=== PATIENT | female | born 1970 | race Caucasian/White ===

== ENCOUNTER → 2016-04-30 | Outpatient (CLI) | payer BC ==
[~2016-04-30] MED LIST: ASPI81TA85; D 50CAP PO; OMEP40CA2 PO; ZONI100C2 PO
--- NOTE | 2016-04-30 11:33 | REP ---
Hepatobiliary scan and gallbladder ejection fraction: History: Right upper quadrant pain. Comparison hepatobiliary scan gallbladder ejection fraction is from July 15, 2015. Technique: 6.1 mCi of technetium-99m mebrofenin was injected and sequential anterior images are acquired. 65 minutes after the mebrofenin injection, the patient consumed 8 ounces Ensure and an additional 60 minutes of imaging was acquired. Regions of interest are plotted around the gallbladder. Findings: The initial hepatocellular parenchymal uptake phase is normal and homogeneous. Intra- and extra-hepatic bile ducts and duodenum are labeled by the 10 -minute image. The gallbladder is first labeled on the 15 -minute image. There is normal washout from the liver parenchyma into the gallbladder and small intestine on subsequent images. The gallbladder ejection fraction is normal at 64 %. Values greater than 35 % are considered normal with this technique. Impression: Normal hepatobiliary scan and gallbladder ejection fraction. Signed by Tru Ledesma MD 04/30/2016 10:32 A
== END ==
LOC: M RAD 07:45
PROVIDERS: ATTEND Surgery
DX: R10.11 Right upper quadrant pain (principal)

== ENCOUNTER 2016-05-20 15:51 | Emergency (ER) | payer BC ==
[2016-05-20] MEDS ORDERED: GASTROGRAFIN SOLUTION 30ML (Q9963) As Ordered ONE (16:53)
[2016-05-20] MEDS ORDERED: MORPHINE 4 MG/ML 1ML SYRINGE As Ordered ONE (16:53)
[2016-05-20 17:41] LABS: BASO % 0.3 % (0.0-1.0); EOS # 0.1 K/mm3 (0.0-0.50); EOS % 1.3 % (0.0-3.0); LARGE UNSTAINED CELL # 0.2 K/mm3 (0.0-0.4); LARGE UNSTAINED CELL % 2.1 % (0.0-4.0); LYMPH # 2.7 K/mm3 (1.5-4.5); LYMPH % 34.3 % (24.0-44.0); MEAN CORPUSCULAR HEMOGLOBIN 30.5 pg (27.0-33.0); MEAN CORPUSCULAR HGB CONC 33.9 g/dl (32.0-36.5); MONO # 0.4 K/mm3 (0.0-0.8); MONO % 5.3 % (0.0-5.0); NEUTROPHILS # 4.2 K/mm3 (1.8-7.7); NEUTROPHILS % 56.7 % (36.0-66.0); PLATELET COUNT, AUTOMATED 205 k/mm3 (150-450); RED CELL DISTRIBUTION WIDTH 12.7 % (11.5-14.5); WHITE BLOOD COUNT 7.4 K/mm3 (4.0-10.0)
[2016-05-20 17:51] LABS: ALBUMIN 3.9 GM/DL (3.2-5.2); ALBUMIN/GLOBULIN RATIO 1.03 (1.00-1.93); ALKALINE PHOSPHATASE 78 U/L (45-117); ALT/SGPT 57 U/L (12-78); AMYLASE 64 U/L (25-115); ANION GAP 7 MEQ/L (8-16); AST/SGOT 23 U/L (15-37); BILIRUBIN,DIRECT 0.1 MG/DL (0.0-0.2); BILIRUBIN,TOTAL 0.6 MG/DL (0.2-1.0); BLOOD UREA NITROGEN 17 MG/DL (7-18); CALCIUM LEVEL 8.5 MG/DL (8.5-10.1); CARBON DIOXIDE LEVEL 25 MEQ/L (21-32); CHLORIDE LEVEL 106 MEQ/L (98-107); CREATININE FOR GFR 0.85 MG/DL (0.55-1.02); GLOMERULAR FILTRATION RATE > 60.0 (>58); GLUCOSE, FASTING 77 MG/DL (70-105); POTASSIUM SERUM 3.8 MEQ/L (3.5-5.1); SODIUM LEVEL 138 MEQ/L (136-145); TOTAL PROTEIN 7.7 GM/DL (6.4-8.2)
[2016-05-20 18:14] LABS: ERYTHROCYTE SEDIMENTATION RATE 36 mm/hr (0-20)
[2016-05-20] MEDS ORDERED: ISOVUE-370 76% 100ML VIAL (Q9967) As Ordered ONE (18:14)
[2016-05-20 18:16] LABS: HCG, SERUM QUANTITATIVE < 1.0 MIU/ML
[2016-05-20] MEDS ORDERED: metroNIDAZOLE (FLAGYL) 250 MG TAB As Ordered ONE (19:10)
[2016-05-20] MEDS ORDERED: CIPROFLOXACIN 500 MG TAB As Ordered ONE (19:10)
--- NOTE | 2016-05-20 19:28 | EDDOCDS ---
Physician Documentation [facility] Name: Janie Curiel Age: 46 yrs Sex: Female : 1970 Arrival Date: 05/20/2016 Time: 15:51 Bed I3 / M3 Private MD: Kin Bailon A. Disposition: 05/20/16 19:16 Discharged to Home/Self Care. Impression: Diverticulitis of large intestine without perforation or abscess without bleeding, Lower abdominal pain, unspecified - llq. - Condition is Stable. - Discharge Instructions: Abdominal Pain, Adult, Diverticulitis. - Prescriptions for Cipro 500 mg Oral Tablet - take 1 tablet by ORAL route every 12 hours for 14 days; 28 tablet. Flagyl 500 mg Oral Tablet - take 1 tablet by ORAL route every 8 hours for 14 days; 42 tablet. [place] 5- 325 mg Oral Tablet - take 1 tablet by ORAL route every 6 hours As needed MDD: 4 tabs; 20 tablet. - Medication Reconciliation, Local Pharmacy Hours, Work Release Form - 2 day form. - Follow up: Emergency Department; When: As needed; Reason: Worsening of conditions. Follow up: Private Physician; When: at your scheduled appointments with Primary Care and the colorectal surgeon in May; Reason: Wound/Symptom Recheck, Recheck today's complaints, Continuance of care. Follow up: Diogenes De Oliveira MD; When: Call to arrange an appointment; Reason: Wound/Symptom Recheck, Recheck today's complaints, Continuance of care, To establish care. - Problem is new. - Symptoms are unchanged. Historical: - Allergies: no known allergies; - Home Meds: 1. zonisamide 100 mg oral cap 1 cap 2 times per day 2. esomeprazole magnesium 40 mg Oral cpDR 1 cap once daily 3. aspirin 81 mg Oral tab 1 tab once daily 4. docqlace 100mg daily - PMHx: Diverticulitis; Diverticulosis; GERD; SVT; lyme disease; lupus anticaog "something"; Migraine Headaches; Hiatal Hernia; - PSHx: ; - Social history: Smoking status: Patient states was never smoker of tobacco. No barriers to communication noted, The patient speaks fluent Yi, Speaks appropriately for age. - Family history: Not pertinent. - : The pt / caregiver states he / she is not on anticoagulants. Home medication list is obtained from the patient. - Exposure Risk Screening:: None identified. MOVIE EXTRA: 05/20 16:03 LMP N/A - Post-menopause srm Vital Signs: 15:53 BP 128 / 83; Pulse 73; Resp 18 S; Temp 97.0(O); Pulse Ox 98% on R/A; Weight 80.74 kg / gr2 178 lbs (R); Height 5 ft. 1 in. (154.94 cm) (R); Pain 5/10; 19:26 BP 145 / 95; Pulse 83; Resp 16; Temp 96.8(O); Pulse Ox 97% on R/A; Pain 5/10; sew 15:53 Body Mass Index 33.63 (80.74 kg, 154.94 cm) gr2 MDM: 16:33 NS 0.9% 1000 ml IV at bolus once ordered. dt4 16:33 IV Saline Lock ordered. dt4 16:33 Undress patient appropriately for examination ordered. dt4 16:34 morphine 4 mg IVP once ordered. dt4 16:34 Amylase Ordered. EDMS 16:34 Basic Metabolic Profile Ordered. EDMS 16:34 CBC with Diff Ordered. EDMS 16:34 Lipase Ordered. EDMS 16:34 Liver Profile Ordered. EDMS 16:34 Urinalysis Ordered. EDMS 16:34 Urine Culture Ordered. EDMS 16:34 CRP Ordered. EDMS 16:34 Sed Rate Ordered. EDMS 16:34 CT ABD & PELVIS: IV and Oral Contrast Ordered. EDMS 16:35 NOTHING BY MOUTH+DIET ordered. EDMS 16:36 ED course: PT STATES HER ABDOMINAL PAIN BEGAN IN SEPTEMBER 2015, WAS DIAGNOSED WITH dt4 DIVERTICULITIS AND WAS PLACED ON CIPRO AND FLAGYL. WAS ON THESE FOR 6 WEEKS WITHOUT RELIEF. SAW A GI SPECIALIST IN [place] AND HAD A COLONOSCOPY WITH BIOPSY AND WAS TREATED WITH MORE CIPRO AND FLAGYL FOR HER LLQ PAIN. REQUIRED MORE ANTIBIOTICS AFTER THIS BECAUSE A CT SCAN REVEALED AN ABSCESS SURROUNDING A DIVERTICULA IN THE LEFT ABDOMEN. STATES A SURGEON IN [place] ADVISED DRAIN INSERTION FOR THIS ABSCESS, "BUT THEY DIDN'T CALL ME BACK IN TIME SO I WENT ON MORE ANTIBIOTICS AND IT RESOLVED." STATES HER CURRENT EPISODE OF PAIN BEGAN 2 DAYS AGO BUT WORSENED LAST NIGHT. HAS ONLY HAD A SMALL AMOUNT OF WATER TODAY WITH HER PILLS, NO FOOD. STATES FOOD MAKES HER PAIN WORSE. IS SCHEDULED TO SEE A COLORECTAL SURGEON IN [place] ON 06/04/16. . 16:44 Financial registration complete. [facility] 16:53 [facility] Payment Agreement was scanned into [employer] and attached to record. [facility] 17:51 HCG, SERUM QUANTITATIVE Ordered. EDMS 19:07 Ciprofloxacin 500 mg PO once; give to pt to take home, thank you. ordered. dt4 19:07 metroNIDAZOLE 500 mg PO once; give to pt to take home, thank you. ordered. dt4 Administered Medications: 17:00 Drug: NS 0.9% 1000 ml [sodium chloride 0.9 % injection solution] Route: IV; Rate: pml bolus; Site: left antecubital; 18:15 Follow up: IV Status: Completed infusion; IV Intake: 1000ml pml 17:00 Not Given (Patient Refused): morphine 4 mg IVP once pml 19:14 Drug: Ciprofloxacin 500 mg [ciprofloxacin 500 mg tablet (1 tabs)] Route: PO; dsf 19:14 Drug: metroNIDAZOLE 500 mg [metronidazole 250 mg tablet (2 tabs)] Route: PO; dsf Signatures: Dispatcher [employer] EDMS Carlyn Dodson RN RN srm Fuller, Desiree, RN RN dsf Gloria Burch RN RN pml Tschudi, Diane, PA-C PA-C dt4 Shawanda Franklin [facility] The chart was reviewed and I authenticate all verbal orders and agree with the evaluation and treatment provided.Corrections: (The following items were deleted from the chart) 17:51 17:41 HCG, SERUM QUANTITATIVE+LAB ordered. EDMS EDMS Attachments: 16:53 [facility] Payment Agreement [facility] MTDD
--- NOTE | 2016-05-20 19:28 | EDDOCDS ---
Nurse's Notes [facility] Name: Janie Curiel Age: 46 yrs Sex: Female : 1970 Arrival Date: 05/20/2016 Time: 15:51 Bed I3 / M3 Private MD: Kin Bailon A. Diagnosis: Diverticulitis of large intestine without perforation or abscess without bleeding;Lower abdominal pain, unspecified-llq Presentation: 05/20 15:55 Presenting complaint: Patient states: hx of diverticulosis and diverticulitis. had srm diverticular abscess from September- mar. saw surgeon in apr- wants her to have part of colon removed and possibly gall bladder. last couple of days bilateral abd pain. today left side is worse than right. constipated. no n/v/d. Risk factors: the patient reports no vaginal bleeding. Adult Sepsis Screening: The patient does not have new or worsening altered mentation. Patient's respiratory rate is less than 22. Systolic blood pressure is greater than 100. Patient has a qSOFA score of 0- Negative Sepsis Screen. Suicide/Homicide risk assessment- the patient denies having any suicidal and/or homicidal ideations and does not present with any other emotional, behavioral or mental health complaints. 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 Transition of care: patient was not received from another setting of care. 15:55 Acuity: CANDIDA Level 3 srm 15:55 Method Of Arrival: Walkin/Carried/Asstd srm Triage Assessment: 16:03 General: Appears in no apparent distress, Behavior is appropriate for age, cooperative. srm Pain: Pain currently is 4 out of 10 on a pain scale. HIV screening NA for this visit Offered previously. GI: Reports lower abdominal pain. DYNAMIC BALANCER: 16:03 LMP N/A - Post-menopause srm Historical: - Allergies: no known allergies; - Home Meds: 1. zonisamide 100 mg oral cap 1 cap 2 times per day 2. esomeprazole magnesium 40 mg Oral cpDR 1 cap once daily 3. aspirin 81 mg Oral tab 1 tab once daily 4. docqlace 100mg daily - PMHx: Diverticulitis; Diverticulosis; GERD; SVT; lyme disease; lupus anticaog "something"; Migraine Headaches; Hiatal Hernia; - PSHx: ; - Social history: Smoking status: Patient states was never smoker of tobacco. No barriers to communication noted, The patient speaks fluent [place], Speaks appropriately for age. - Family history: Not pertinent. - : The pt / caregiver states he / she is not on anticoagulants. Home medication list is obtained from the patient. - Exposure Risk Screening:: None identified. Screenin:49 Screening information is obtained from the patient. Fall risk: No risks identified. pml Assistance ADL's: requires no assistance with activities of daily living. Abuse/DV Screen: The patient / caregiver reports he/she is: not in a situation that causes fear, pain or injury. Nutritional screening: No deficits noted. Advance Directives: Currently, there is no health care proxy. home support is adequate. Assessment: 16:49 General: Appears in no apparent distress, comfortable, Behavior is appropriate for age, pml cooperative. Pain: Location: left lower quadrant Pain currently is 4 out of 10 on a pain scale. Neurological: Level of Consciousness is awake, alert, Oriented to person, place, time. Cardiovascular: Capillary refill < 3 seconds. Respiratory: Airway is patent Respiratory effort is even, unlabored. GI: Abdomen is non- distended Bowel sounds present X 4 quads. Abd is soft and non tender X 4 quads. Reports cramping, nausea. Derm: Skin is pink, warm & dry. 18:00 General: Resting on stretcher, tolerating PO gastrographin without difficulty . pml 19:15 Adult Sepsis Screening: The patient does not have new or worsening altered mentation. dsf Patient's respiratory rate is less than 22. Systolic blood pressure is greater than 100. Patient has a qSOFA score of 0- Negative Sepsis Screen. General: Appears in no apparent distress, Behavior is appropriate for age, cooperative. Neurological: Level of Consciousness is awake, alert. Cardiovascular: Capillary refill < 3 seconds. Respiratory: Airway is patent Respiratory effort is even, unlabored, Respiratory pattern is regular, symmetrical. Derm: Skin is pink, warm & dry. Vital Signs: 15:53 BP 128 / 83; Pulse 73; Resp 18 S; Temp 97.0(O); Pulse Ox 98% on R/A; Weight 80.74 kg gr2 (R); Height 5 ft. 1 in. (154.94 cm) (R); Pain 5/10; 19:26 BP 145 / 95; Pulse 83; Resp 16; Temp 96.8(O); Pulse Ox 97% on R/A; Pain 5/10; sew 15:53 Body Mass Index 33.63 (80.74 kg, 154.94 cm) gr2 Vitals: 15:53 Log In Time: May 20, 2016 at 15:53. gr2 ED Course: 15:52 Patient visited by Cat Ya. gr2 15:52 Kin Bailon is Private Physician. gr2 15:52 Patient moved to Waiting gr2 15:55 Patient visited by Cat Ya. gr2 15:55 Patient moved to Pre RCE gr2 15:59 Triage Initiated srm 16:15 Patient moved to I3 / M3 [facility] 16:16 Mei Peterson [facility]-C [facility]. dt4 16:16 Selena Calloway MD is Attending Physician. dt4 16:16 Patient visited by Mei Peterson PA-C. dt4 16:49 The patient / caregiver is instructed regarding the plan of care and ED course. Patient pml has correct armband on for positive identification. Placed in gown. Bed in low position. Call light in reach. Side rails up X2. 16:49 Inserted peripheral IV: 20gauge IV in left antecubital area and blood collected. pml Patient tolerated the procedure well. 16:51 Patient visited by Gloria Burch RN. pml 16:52 Patient name changed from Janie\\S\\E\\S\\Moisés\\S\\ to Janie\\S\\Danica\\S\\Moisés. EDMS 16:53 [facility] Payment Agreement was scanned into [employer] and attached to record. slh 17:52 Patient visited by Rose Hernandez, KAT. dls 18:28 Patient visited by Gloria Burch,KAT. pml 19:14 Diogenes De Oliveira MD is Referral Physician. dt4 19:15 Discontinued lock intact, bleeding controlled, pressure dressing applied, No dsf redness/swelling at site. No procedures done that require assistance. 19:27 Patient visited by Lashonda Avila. sew Administered Medications: 17:00 Drug: NS 0.9% 1000 ml [sodium chloride 0.9 % injection solution] Route: IV; Rate: pml bolus; Site: left antecubital; 18:15 Follow up: IV Status: Completed infusion; IV Intake: 1000ml pml 17:00 Not Given (Patient Refused): morphine 4 mg IVP once pml 19:14 Drug: Ciprofloxacin 500 mg [ciprofloxacin 500 mg tablet (1 tabs)] Route: PO; dsf 19:14 Drug: metroNIDAZOLE 500 mg [metronidazole 250 mg tablet (2 tabs)] Route: PO; dsf Intake: 18:15 IV: 1000.00ml; Total: 1000.00ml. pml Order Results: Lab Order: Amylase; SPEC'M 05/20/16 17:20 Test: AMYLASE; Value: 64; Range: 25-115; Units: U/L; Status: F Lab Order: Basic Metabolic Profile; SPEC'M 05/20/16 17:20 Test: GLUCOSE, FASTING; Value: 77; Range: 70-105; Units: MG/DL; Status: F Test: BLOOD UREA NITROGEN; Value: 17; Range: 7-18; Units: MG/DL; Status: F Test: CREATININE FOR GFR; Value: 0.85; Range: 0.55-1.02; Units: MG/DL; Status: F Test: GLOMERULAR FILTRATION RATE; Value: > 60.0; Range: >58; Status: F Test: SODIUM LEVEL; Value: 138; Range: 136-145; Units: MEQ/L; Status: F Test: POTASSIUM SERUM; Value: 3.8; Range: 3.5-5.1; Units: MEQ/L; Status: F Test: CHLORIDE LEVEL; Value: 106; Range: 98-107; Units: MEQ/L; Status: F Test: CARBON DIOXIDE LEVEL; Value: 25; Range: 21-32; Units: MEQ/L; Status: F Test: ANION GAP; Value: 7; Range: 8-16; Abnormal: Below low normal; Units: MEQ/L; Status: F Test: CALCIUM LEVEL; Value: 8.5; Range: 8.5-10.1; Units: MG/DL; Status: F Test Note: ; Units are mL/min/1.73 m2 Chronic Kidney Disease Staging per NKF: Stage I & II GFR >=60 Normal to Mildly Decreased Stage III GFR 30-59 Moderately Decreased Stage IV GFR 15-29 Severely Decreased Stage V GFR <15 Very Little GFR Left ESRD GFR <15 on CLERICAL ASSISTANT Lab Order: CBC with Diff; SPEC'M 05/20/16 17:20 Test: WHITE BLOOD COUNT; Value: 7.4; Range: 4.0-10.0; Units: K/mm3; Status: F Test: RED BLOOD COUNT; Value: 4.35; Range: 4.00-5.40; Units: M/mm3; Status: F Test: HEMOGLOBIN; Value: 13.3; Range: 12.0-16.0; Units: g/dl; Status: F Test: HEMATOCRIT; Value: 39.2; Range: 36.0-47.0; Units: %; Status: F Test: MEAN CORPUSCULAR VOLUME; Value: 90.0; Range: 80.0-96.0; Units: fl; Status: F Test: MEAN CORPUSCULAR HEMOGLOBIN; Value: 30.5; Range: 27.0-33.0; Units: pg; Status: F Test: MEAN CORPUSCULAR HGB CONC; Value: 33.9; Range: 32.0-36.5; Units: g/dl; Status: F Test: RED CELL DISTRIBUTION WIDTH; Value: 12.7; Range: 11.5-14.5; Units: %; Status: F Test: PLATELET COUNT, AUTOMATED; Value: 205; Range: 150-450; Units: k/mm3; Status: F Test: NEUTROPHILS %; Value: 56.7; Range: 36.0-66.0; Units: %; Status: F Test: LYMPH %; Value: 34.3; Range: 24.0-44.0; Units: %; Status: F Test: MONO %; Value: 5.3; Range: 0.0-5.0; Abnormal: Above high normal; Units: %; Status: F Test: EOS %; Value: 1.3; Range: 0.0-3.0; Units: %; Status: F Test: BASO %; Value: 0.3; Range: 0.0-1.0; Units: %; Status: F Test: LARGE UNSTAINED CELL %; Value: 2.1; Range: 0.0-4.0; Units: %; Status: F Test: NEUTROPHILS #; Value: 4.2; Range: 1.8-7.7; Units: K/mm3; Status: F Test: LYMPH #; Value: 2.7; Range: 1.5-4.5; Units: K/mm3; Status: F Test: MONO #; Value: 0.4; Range: 0.0-0.8; Units: K/mm3; Status: F Test: EOS #; Value: 0.1; Range: 0.0-0.50; Units: K/mm3; Status: F Test: BASO #; Value: 0.0; Range: 0.0-0.2; Units: K/mm3; Status: F Test: LARGE UNSTAINED CELL #; Value: 0.2; Range: 0.0-0.4; Units: K/mm3; Status: F Lab Order: Lipase; [facility] 05/20/16 Test: LIPASE; Value: 160; Range: 73-393; Units: U/L; Status: F Lab Order: Liver Profile; [facility] 05/20/16: Test: AST/SGOT; Value: 23; Range: 15-37; Units: U/L; Status: F Test: ALT/SGPT; Value: 57; Range: 12-78; Units: U/L; Status: F Test: ALKALINE PHOSPHATASE; Value: 78; Range: 45-117; Units: U/L; Status: F Test: BILIRUBIN,TOTAL; Value: 0.6; Range: 0.2-1.0; Units: MG/DL; Status: F Test: BILIRUBIN,DIRECT; Value: 0.1; Range: 0.0-0.2; Units: MG/DL; Status: F Test: TOTAL PROTEIN; Value: 7.7; Range: 6.4-8.2; Units: GM/DL; Status: F Test: ALBUMIN; Value: 3.9; Range: 3.2-5.2; Units: GM/DL; Status: F Test: ALBUMIN/GLOBULIN RATIO; Value: 1.03; Range: 1.00-1.93; Status: F Lab Order: CRP; [facility] 05/20/16: Test: C REACTIVE PROTEIN QUANTITATIV; Value: 1.44; Range: 0.00-0.30; Abnormal: Above high normal; Units: MG/DL; Status: F Lab Order: Sed Rate; [facility] 02/19/17 17:20 Test: ERYTHROCYTE SEDIMENTATION RATE; Value: 36; Range: 0-20; Abnormal: Above high normal; Units: mm/hr; Status: F Lab Order: HCG, SERUM QUANTITATIVE; SPEC'M 05/20/16 17:20 Test: HCG, SERUM QUANTITATIVE; Value: < 1.0; Units: MIU/ML; Status: F Test Note: ; GESTATIONAL AGE APPROXIMATE HCG RANGE (MIU/ML) 0.2-1 WEEK 5-50 1-2 WEEKS 50-500 2-3 WEEKS 100-5,000 3-4 WEEKS 500-10,000 4-5 WEEKS 1,000-50,000 5-6 WEEKS 10,000-100,000 6-8 WEEKS 15,000-200,000 2-3 MONTHS 10,000-100,000 NON FEMALES LESS THAN 3.0 Patient samples may contain human heterophilic antibodies that could react with immunoassays to give falsely elevated or depressed results. This assay has been designed to minimize interference from heterophilic antibodies. Elevated hCG levels have also been associated with trophoblastic disease and nontrophoblastic neoplasms. The possibility of having these diseases should be considered before a diagnosis of is made. This test is not intended for use as a surrogate marker for aiding in the diagnosis or monitoring the treatment of cancer patients. [employer] methodology. Outcome: 19:16 Discharge ordered by Provider. dt4 19:16 CT Study completed. dsf 19:27 Discharge Assessment: Patient awake, alert and oriented x 3. No cognitive and/or dsf functional deficits noted. Patient verbalized understanding of disposition instructions. patient administered narcotics - no. The following High Risk Discharge criteria are identified: None. Discharged to home ambulatory, with family. Condition: stable. Discharge instructions given to patient, Instructed on discharge instructions, follow up and referral plans. medication usage, no driving heavy equipment, Demonstrated understanding of instructions, medications, Pt was receptive of discharge instructions/ teaching. Prescriptions given X 3, Work note provided to patient. Property sent home with patient. 19:27 Patient left the ED. dsf Signatures: Dispatcher [facility] EDAK Carlyn Dodson RN RN srm Scott, Debra, RN RN dls Fuller, Desiree, RN RN f Gloria Burch RN RN Josselyn Argueta RN RN [facility] [place], Cat Liu gr2 Mei Peterson PA-C PA-C dt4 Shawanda Franklin NASIM
--- NOTE | 2016-05-21 08:17 | REP ---
Clinical: Acute left lower quadrant pain. Technique: Axial contrast enhanced images from the lung bases to the pubic symphysis using oral and 100 ml Isovue 370 intravenous contrast material. Comparison: 01/12/2016. Findings: Mural thickening and pericolonic stranding is appreciated involving the proximal sigmoid colon with diffuse diverticulosis. Findings are most compatible with acute diverticulitis a single significantly dilated air filled inflamed diverticula is noted and small contained perforation cannot definitively be excluded (images 98 - 88). Inflammatory changes are inseparable from the left adnexa and may warrant followup to exclude secondary tubal ovarian inflammatory changes. No bowel obstruction or michael perforation. The remainder of the small large bowel is grossly unremarkable. Liver, spleen, pancreas, gallbladder, bilateral adrenal glands and kidneys are normal pelvis demonstrates normal bladder and age-appropriate uterus/adnexa no pelvic fluid or ascites. No significant adenopathy. Vasculature appears normal. Musculoskeletal structures are intact. Impression: Acute sigmoid diverticulitis as described above. Small focus of contained perforation cannot be excluded as well as secondary inflammatory changes to the left ovary. There is no associated bowel obstruction, michael perforation, or drainable collection/abscess. Signed by Doug Emmanuel MD 05/21/2016 08:08 A
--- NOTE | 2016-05-22 20:28 | EDDOCDS ---
Physician Documentation [facility] Name: Janie Curiel Age: 46 yrs Sex: Female : 1970 Arrival Date: 05/20/2016 Time: 15:51 Bed I3 / M3 Private MD: Kin Bailon A. Disposition: 05/20/16 19:16 Discharged to Home/Self Care. Impression: Diverticulitis of large intestine without perforation or abscess without bleeding, Lower abdominal pain, unspecified - llq. - Condition is Stable. - Discharge Instructions: Abdominal Pain, Adult, Diverticulitis. - Prescriptions for Cipro 500 mg Oral Tablet - take 1 tablet by ORAL route every 12 hours for 14 days; 28 tablet. Flagyl 500 mg Oral Tablet - take 1 tablet by ORAL route every 8 hours for 14 days; 42 tablet. [place] 5- 325 mg Oral Tablet - take 1 tablet by ORAL route every 6 hours As needed MDD: 4 tabs; 20 tablet. - Medication Reconciliation, Local Pharmacy Hours, Work Release Form - 2 day form. - Follow up: Emergency Department; When: As needed; Reason: Worsening of conditions. Follow up: Private Physician; When: at your scheduled appointments with Primary Care and the colorectal surgeon in May; Reason: Wound/Symptom Recheck, Recheck today's complaints, Continuance of care. Follow up: Diogenes De Oliveira MD; When: Call to arrange an appointment; Reason: Wound/Symptom Recheck, Recheck today's complaints, Continuance of care, To establish care. - Problem is new. - Symptoms are unchanged. Historical: - Allergies: no known allergies; - Home Meds: 1. zonisamide 100 mg oral cap 1 cap 2 times per day 2. esomeprazole magnesium 40 mg Oral cpDR 1 cap once daily 3. aspirin 81 mg Oral tab 1 tab once daily 4. docqlace 100mg daily - PMHx: Diverticulitis; Diverticulosis; GERD; SVT; lyme disease; lupus anticaog "something"; Migraine Headaches; Hiatal Hernia; - PSHx: ; - Social history: Smoking status: Patient states was never smoker of tobacco. No barriers to communication noted, The patient speaks fluent Kinyarwanda, Speaks appropriately for age. - Family history: Not pertinent. - : The pt / caregiver states he / she is not on anticoagulants. Home medication list is obtained from the patient. - Exposure Risk Screening:: None identified. REVIEW SCHEDULING COORDINATOR: 05/20 16:03 LMP N/A - Post-menopause srm Vital Signs: 15:53 BP 128 / 83; Pulse 73; Resp 18 S; Temp 97.0(O); Pulse Ox 98% on R/A; Weight 80.74 kg / gr2 178 lbs (R); Height 5 ft. 1 in. (154.94 cm) (R); Pain 5/10; 19:26 BP 145 / 95; Pulse 83; Resp 16; Temp 96.8(O); Pulse Ox 97% on R/A; Pain 5/10; sew 15:53 Body Mass Index 33.63 (80.74 kg, 154.94 cm) gr2 MDM: 16:33 NS 0.9% 1000 ml IV at bolus once ordered. dt4 16:33 IV Saline Lock ordered. dt4 16:33 Undress patient appropriately for examination ordered. dt4 16:34 morphine 4 mg IVP once ordered. dt4 16:34 Amylase Ordered. EDMS 16:34 Basic Metabolic Profile Ordered. EDMS 16:34 CBC with Diff Ordered. EDMS 16:34 Lipase Ordered. EDMS 16:34 Liver Profile Ordered. EDMS 16:34 Urinalysis Ordered. EDMS 16:34 Urine Culture Ordered. EDMS 16:34 CRP Ordered. EDMS 16:34 Sed Rate Ordered. EDMS 16:34 CT ABD & PELVIS: IV and Oral Contrast Ordered. EDMS 16:35 NOTHING BY MOUTH+DIET ordered. EDMS 16:36 ED course: PT STATES HER ABDOMINAL PAIN BEGAN IN SEPTEMBER 2015, WAS DIAGNOSED WITH dt4 DIVERTICULITIS AND WAS PLACED ON CIPRO AND FLAGYL. WAS ON THESE FOR 6 WEEKS WITHOUT RELIEF. SAW A GI SPECIALIST IN [place] AND HAD A COLONOSCOPY WITH BIOPSY AND WAS TREATED WITH MORE CIPRO AND FLAGYL FOR HER LLQ PAIN. REQUIRED MORE ANTIBIOTICS AFTER THIS BECAUSE A CT SCAN REVEALED AN ABSCESS SURROUNDING A DIVERTICULA IN THE LEFT ABDOMEN. STATES A SURGEON IN [place] ADVISED DRAIN INSERTION FOR THIS ABSCESS, "BUT THEY DIDN'T CALL ME BACK IN TIME SO I WENT ON MORE ANTIBIOTICS AND IT RESOLVED." STATES HER CURRENT EPISODE OF PAIN BEGAN 2 DAYS AGO BUT WORSENED LAST NIGHT. HAS ONLY HAD A SMALL AMOUNT OF WATER TODAY WITH HER PILLS, NO FOOD. STATES FOOD MAKES HER PAIN WORSE. IS SCHEDULED TO SEE A COLORECTAL SURGEON IN [place] ON 06/04/16. . 16:44 Financial registration complete. [facility] 16:53 [facility] Payment Agreement was scanned into [employer] and attached to record. [facility] 17:51 HCG, SERUM QUANTITATIVE Ordered. EDMS 19:07 Ciprofloxacin 500 mg PO once; give to pt to take home, thank you. ordered. dt4 19:07 metroNIDAZOLE 500 mg PO once; give to pt to take home, thank you. ordered. dt4 22:20 T-Sheet-- Draft Copy was scanned into [employer] and attached to record. klr Administered Medications: 17:00 Drug: NS 0.9% 1000 ml [sodium chloride 0.9 % injection solution] Route: IV; Rate: pml bolus; Site: left antecubital; 18:15 Follow up: IV Status: Completed infusion; IV Intake: 1000ml pml 17:00 Not Given (Patient Refused): morphine 4 mg IVP once pml 19:14 Drug: Ciprofloxacin 500 mg [ciprofloxacin 500 mg tablet (1 tabs)] Route: PO; dsf 19:14 Drug: metroNIDAZOLE 500 mg [metronidazole 250 mg tablet (2 tabs)] Route: PO; dsf Signatures: Dispatcher [employer] EDMS Carlyn Dodson RN RN srm Fuller, Desiree, RN RN dsf Quay, Paulina, RN RN pml Tschudi, Diane, JESIKA PAShawanda Raphael Leidy Wang The chart was reviewed and I authenticate all verbal orders and agree with the evaluation and treatment provided.Corrections: (The following items were deleted from the chart) 17:51 17:41 HCG, SERUM QUANTITATIVE+LAB ordered. EDMS EDMS Attachments: 16:53 [facility] Payment Agreement [facility] 22:20 T-Sheet-- Draft Copy klr Chart Complete MTDD
--- NOTE | 2016-05-22 20:28 | EDDOCDS ---
Physician Documentation [facility] Name: Janie Curiel Age: 46 yrs Sex: Female : 1970 Arrival Date: 05/20/2016 Time: 15:51 Bed I3 / M3 Private MD: Kin Bailon A. Disposition: 05/20/16 19:16 Discharged to Home/Self Care. Impression: Diverticulitis of large intestine without perforation or abscess without bleeding, Lower abdominal pain, unspecified - llq. - Condition is Stable. - Discharge Instructions: Abdominal Pain, Adult, Diverticulitis. - Prescriptions for Cipro 500 mg Oral Tablet - take 1 tablet by ORAL route every 12 hours for 14 days; 28 tablet. Flagyl 500 mg Oral Tablet - take 1 tablet by ORAL route every 8 hours for 14 days; 42 tablet. [place] 5- 325 mg Oral Tablet - take 1 tablet by ORAL route every 6 hours As needed MDD: 4 tabs; 20 tablet. - Medication Reconciliation, Local Pharmacy Hours, Work Release Form - 2 day form. - Follow up: Emergency Department; When: As needed; Reason: Worsening of conditions. Follow up: Private Physician; When: at your scheduled appointments with Primary Care and the colorectal surgeon in May; Reason: Wound/Symptom Recheck, Recheck today's complaints, Continuance of care. Follow up: Diogenes De Oliveira MD; When: Call to arrange an appointment; Reason: Wound/Symptom Recheck, Recheck today's complaints, Continuance of care, To establish care. - Problem is new. - Symptoms are unchanged. Historical: - Allergies: no known allergies; - Home Meds: 1. zonisamide 100 mg oral cap 1 cap 2 times per day 2. esomeprazole magnesium 40 mg Oral cpDR 1 cap once daily 3. aspirin 81 mg Oral tab 1 tab once daily 4. docqlace 100mg daily - PMHx: Diverticulitis; Diverticulosis; GERD; SVT; lyme disease; lupus anticaog "something"; Migraine Headaches; Hiatal Hernia; - PSHx: ; - Social history: Smoking status: Patient states was never smoker of tobacco. No barriers to communication noted, The patient speaks fluent Maltese, Speaks appropriately for age. - Family history: Not pertinent. - : The pt / caregiver states he / she is not on anticoagulants. Home medication list is obtained from the patient. - Exposure Risk Screening:: None identified. AUDITING MANAGER: 05/20 16:03 LMP N/A - Post-menopause srm Vital Signs: 15:53 BP 128 / 83; Pulse 73; Resp 18 S; Temp 97.0(O); Pulse Ox 98% on R/A; Weight 80.74 kg / gr2 178 lbs (R); Height 5 ft. 1 in. (154.94 cm) (R); Pain 5/10; 19:26 BP 145 / 95; Pulse 83; Resp 16; Temp 96.8(O); Pulse Ox 97% on R/A; Pain 5/10; sew 15:53 Body Mass Index 33.63 (80.74 kg, 154.94 cm) gr2 MDM: 16:33 NS 0.9% 1000 ml IV at bolus once ordered. dt4 16:33 IV Saline Lock ordered. dt4 16:33 Undress patient appropriately for examination ordered. dt4 16:34 morphine 4 mg IVP once ordered. dt4 16:34 Amylase Ordered. EDMS 16:34 Basic Metabolic Profile Ordered. EDMS 16:34 CBC with Diff Ordered. EDMS 16:34 Lipase Ordered. EDMS 16:34 Liver Profile Ordered. EDMS 16:34 Urinalysis Ordered. EDMS 16:34 Urine Culture Ordered. EDMS 16:34 CRP Ordered. EDMS 16:34 Sed Rate Ordered. EDMS 16:34 CT ABD & PELVIS: IV and Oral Contrast Ordered. EDMS 16:35 NOTHING BY MOUTH+DIET ordered. EDMS 16:36 ED course: PT STATES HER ABDOMINAL PAIN BEGAN IN SEPTEMBER 2015, WAS DIAGNOSED WITH dt4 DIVERTICULITIS AND WAS PLACED ON CIPRO AND FLAGYL. WAS ON THESE FOR 6 WEEKS WITHOUT RELIEF. SAW A GI SPECIALIST IN [place] AND HAD A COLONOSCOPY WITH BIOPSY AND WAS TREATED WITH MORE CIPRO AND FLAGYL FOR HER LLQ PAIN. REQUIRED MORE ANTIBIOTICS AFTER THIS BECAUSE A CT SCAN REVEALED AN ABSCESS SURROUNDING A DIVERTICULA IN THE LEFT ABDOMEN. STATES A SURGEON IN [place] ADVISED DRAIN INSERTION FOR THIS ABSCESS, "BUT THEY DIDN'T CALL ME BACK IN TIME SO I WENT ON MORE ANTIBIOTICS AND IT RESOLVED." STATES HER CURRENT EPISODE OF PAIN BEGAN 2 DAYS AGO BUT WORSENED LAST NIGHT. HAS ONLY HAD A SMALL AMOUNT OF WATER TODAY WITH HER PILLS, NO FOOD. STATES FOOD MAKES HER PAIN WORSE. IS SCHEDULED TO SEE A COLORECTAL SURGEON IN [place] ON 06/04/16. . 16:44 Financial registration complete. [facility] 16:53 [facility] Payment Agreement was scanned into [employer] and attached to record. [facility] 17:51 HCG, SERUM QUANTITATIVE Ordered. EDMS 19:07 Ciprofloxacin 500 mg PO once; give to pt to take home, thank you. ordered. dt4 19:07 metroNIDAZOLE 500 mg PO once; give to pt to take home, thank you. ordered. dt4 22:20 T-Sheet-- Draft Copy was scanned into [employer] and attached to record. klr Administered Medications: 17:00 Drug: NS 0.9% 1000 ml [sodium chloride 0.9 % injection solution] Route: IV; Rate: pml bolus; Site: left antecubital; 18:15 Follow up: IV Status: Completed infusion; IV Intake: 1000ml pml 17:00 Not Given (Patient Refused): morphine 4 mg IVP once pml 19:14 Drug: Ciprofloxacin 500 mg [ciprofloxacin 500 mg tablet (1 tabs)] Route: PO; dsf 19:14 Drug: metroNIDAZOLE 500 mg [metronidazole 250 mg tablet (2 tabs)] Route: PO; dsf Signatures: Dispatcher [employer] EDMS Carlyn Dodson RN RN srm Fuller, Desiree, RN RN dsf Quay, Paulina, RN RN pml Tschudi, Diane, JESIKA PAShawanda Raphael Leidy Wang The chart was reviewed and I authenticate all verbal orders and agree with the evaluation and treatment provided.Corrections: (The following items were deleted from the chart) 17:51 17:41 HCG, SERUM QUANTITATIVE+LAB ordered. EDMS EDMS Attachments: 16:53 [facility] Payment Agreement [facility] 22:20 T-Sheet-- Draft Copy klr Chart Complete MTDD
--- NOTE | 2016-05-22 20:28 | EDDOCDS ---
Nurse's Notes [facility] Name: Janie Curiel Age: 46 yrs Sex: Female : 1970 Arrival Date: 05/20/2016 Time: 15:51 Bed I3 / M3 Private MD: Kin Bailon A. Diagnosis: Diverticulitis of large intestine without perforation or abscess without bleeding;Lower abdominal pain, unspecified-llq Presentation: 05/20 15:55 Presenting complaint: Patient states: hx of diverticulosis and diverticulitis. had srm diverticular abscess from September- mar. saw surgeon in apr- wants her to have part of colon removed and possibly gall bladder. last couple of days bilateral abd pain. today left side is worse than right. constipated. no n/v/d. Risk factors: the patient reports no vaginal bleeding. Adult Sepsis Screening: The patient does not have new or worsening altered mentation. Patient's respiratory rate is less than 22. Systolic blood pressure is greater than 100. Patient has a qSOFA score of 0- Negative Sepsis Screen. Suicide/Homicide risk assessment- the patient denies having any suicidal and/or homicidal ideations and does not present with any other emotional, behavioral or mental health complaints. 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 Transition of care: patient was not received from another setting of care. 15:55 Acuity: CANDIDA Level 3 srm 15:55 Method Of Arrival: Walkin/Carried/Asstd srm Triage Assessment: 16:03 General: Appears in no apparent distress, Behavior is appropriate for age, cooperative. srm Pain: Pain currently is 4 out of 10 on a pain scale. HIV screening NA for this visit Offered previously. GI: Reports lower abdominal pain. CHECK VIEWER: 16:03 LMP N/A - Post-menopause srm Historical: - Allergies: no known allergies; - Home Meds: 1. zonisamide 100 mg oral cap 1 cap 2 times per day 2. esomeprazole magnesium 40 mg Oral cpDR 1 cap once daily 3. aspirin 81 mg Oral tab 1 tab once daily 4. docqlace 100mg daily - PMHx: Diverticulitis; Diverticulosis; GERD; SVT; lyme disease; lupus anticaog "something"; Migraine Headaches; Hiatal Hernia; - PSHx: ; - Social history: Smoking status: Patient states was never smoker of tobacco. No barriers to communication noted, The patient speaks fluent [place], Speaks appropriately for age. - Family history: Not pertinent. - : The pt / caregiver states he / she is not on anticoagulants. Home medication list is obtained from the patient. - Exposure Risk Screening:: None identified. Screenin:49 Screening information is obtained from the patient. Fall risk: No risks identified. pml Assistance ADL's: requires no assistance with activities of daily living. Abuse/DV Screen: The patient / caregiver reports he/she is: not in a situation that causes fear, pain or injury. Nutritional screening: No deficits noted. Advance Directives: Currently, there is no health care proxy. home support is adequate. Assessment: 16:49 General: Appears in no apparent distress, comfortable, Behavior is appropriate for age, pml cooperative. Pain: Location: left lower quadrant Pain currently is 4 out of 10 on a pain scale. Neurological: Level of Consciousness is awake, alert, Oriented to person, place, time. Cardiovascular: Capillary refill < 3 seconds. Respiratory: Airway is patent Respiratory effort is even, unlabored. GI: Abdomen is non- distended Bowel sounds present X 4 quads. Abd is soft and non tender X 4 quads. Reports cramping, nausea. Derm: Skin is pink, warm & dry. 18:00 General: Resting on stretcher, tolerating PO gastrographin without difficulty . pml 19:15 Adult Sepsis Screening: The patient does not have new or worsening altered mentation. dsf Patient's respiratory rate is less than 22. Systolic blood pressure is greater than 100. Patient has a qSOFA score of 0- Negative Sepsis Screen. General: Appears in no apparent distress, Behavior is appropriate for age, cooperative. Neurological: Level of Consciousness is awake, alert. Cardiovascular: Capillary refill < 3 seconds. Respiratory: Airway is patent Respiratory effort is even, unlabored, Respiratory pattern is regular, symmetrical. Derm: Skin is pink, warm & dry. Vital Signs: 15:53 BP 128 / 83; Pulse 73; Resp 18 S; Temp 97.0(O); Pulse Ox 98% on R/A; Weight 80.74 kg gr2 (R); Height 5 ft. 1 in. (154.94 cm) (R); Pain 5/10; 19:26 BP 145 / 95; Pulse 83; Resp 16; Temp 96.8(O); Pulse Ox 97% on R/A; Pain 5/10; sew 15:53 Body Mass Index 33.63 (80.74 kg, 154.94 cm) gr2 Vitals: 15:53 Log In Time: May 20, 2016 at 15:53. gr2 ED Course: 15:52 Patient visited by Cat Ya. gr2 15:52 Kin Bailon is Private Physician. gr2 15:52 Patient moved to Waiting gr2 15:55 Patient visited by Cat Ya. gr2 15:55 Patient moved to Pre RCE gr2 15:59 Triage Initiated srm 16:15 Patient moved to I3 / M3 [facility] 16:16 [facility] dt4 16:16 Selena Calloway MD is Attending Physician. dt4 16:16 Patient visited by Mei Peterson PA-C. dt4 16:49 The patient / caregiver is instructed regarding the plan of care and ED course. Patient pml has correct armband on for positive identification. Placed in gown. Bed in low position. Call light in reach. Side rails up X2. 16:49 Inserted peripheral IV: 20gauge IV in left antecubital area and blood collected. pml Patient tolerated the procedure well. 16:51 Patient visited by Gloria Burch RN. pml 16:52 Patient name changed from Janie\\S\\E\\S\\Moisés\\S\\ to Janie\\S\\Danica\\S\\Moisés. EDMS 16:53 [facility] Payment Agreement was scanned into [employer] and attached to record. slh 17:52 Patient visited by Rose Hernandez, KAT. dls 18:28 Patient visited by Gloria Burch,KAT. pml 19:14 Diogenes De Oliveira MD is Referral Physician. dt4 19:15 Discontinued lock intact, bleeding controlled, pressure dressing applied, No dsf redness/swelling at site. No procedures done that require assistance. 19:27 Patient visited by Lashonda Avila. sew 22:20 T-Sheet-- Draft Copy was scanned into [employer] and attached to record. klr 05/21 08:45 CT ABD & PELVIS: IV and Oral Contrast Returned. EDMS Administered Medications: 05/20 17:00 Drug: NS 0.9% 1000 ml [sodium chloride 0.9 % injection solution] Route: IV; Rate: pml bolus; Site: left antecubital; 18:15 Follow up: IV Status: Completed infusion; IV Intake: 1000ml pml 17:00 Not Given (Patient Refused): morphine 4 mg IVP once pml 19:14 Drug: Ciprofloxacin 500 mg [ciprofloxacin 500 mg tablet (1 tabs)] Route: PO; dsf 19:14 Drug: metroNIDAZOLE 500 mg [metronidazole 250 mg tablet (2 tabs)] Route: PO; dsf Intake: 18:15 IV: 1000.00ml; Total: 1000.00ml. pml Order Results: Lab Order: Amylase; SPEC'M 05/20/16 17:20 Test: AMYLASE; Value: 64; Range: 25-115; Units: U/L; Status: F Lab Order: Basic Metabolic Profile; SPEC'M 05/20/16 17:20 Test: GLUCOSE, FASTING; Value: 77; Range: 70-105; Units: MG/DL; Status: F Test: BLOOD UREA NITROGEN; Value: 17; Range: 7-18; Units: MG/DL; Status: F Test: CREATININE FOR GFR; Value: 0.85; Range: 0.55-1.02; Units: MG/DL; Status: F Test: GLOMERULAR FILTRATION RATE; Value: > 60.0; Range: >58; Status: F Test: SODIUM LEVEL; Value: 138; Range: 136-145; Units: MEQ/L; Status: F Test: POTASSIUM SERUM; Value: 3.8; Range: 3.5-5.1; Units: MEQ/L; Status: F Test: CHLORIDE LEVEL; Value: 106; Range: 98-107; Units: MEQ/L; Status: F Test: CARBON DIOXIDE LEVEL; Value: 25; Range: 21-32; Units: MEQ/L; Status: F Test: ANION GAP; Value: 7; Range: 8-16; Abnormal: Below low normal; Units: MEQ/L; Status: F Test: CALCIUM LEVEL; Value: 8.5; Range: 8.5-10.1; Units: MG/DL; Status: F Test Note: ; Units are mL/min/1.73 m2 Chronic Kidney Disease Staging per NKF: Stage I & II GFR >=60 Normal to Mildly Decreased Stage III GFR 30-59 Moderately Decreased Stage IV GFR 15-29 Severely Decreased Stage V GFR <15 Very Little GFR Left ESRD GFR <[address] Lab Order: CBC with Diff; PHILL'M 05/20/16 17:20 Test: WHITE BLOOD COUNT; Value: 7.4; Range: 4.0-10.0; Units: K/mm3; Status: F Test: RED BLOOD COUNT; Value: 4.35; Range: 4.00-5.40; Units: M/mm3; Status: F Test: HEMOGLOBIN; Value: 13.3; Range: 12.0-16.0; Units: g/dl; Status: F Test: HEMATOCRIT; Value: 39.2; Range: 36.0-47.0; Units: %; Status: F Test: MEAN CORPUSCULAR VOLUME; Value: 90.0; Range: 80.0-96.0; Units: fl; Status: F Test: MEAN CORPUSCULAR HEMOGLOBIN; Value: 30.5; Range: 27.0-33.0; Units: pg; Status: F Test: MEAN CORPUSCULAR HGB CONC; Value: 33.9; Range: 32.0-36.5; Units: g/dl; Status: F Test: RED CELL DISTRIBUTION WIDTH; Value: 12.7; Range: 11.5-14.5; Units: %; Status: F Test: PLATELET COUNT, AUTOMATED; Value: 205; Range: 150-450; Units: k/mm3; Status: F Test: NEUTROPHILS %; Value: 56.7; Range: 36.0-66.0; Units: %; Status: F Test: LYMPH %; Value: 34.3; Range: 24.0-44.0; Units: %; Status: F Test: MONO %; Value: 5.3; Range: 0.0-5.0; Abnormal: Above high normal; Units: %; Status: F Test: EOS %; Value: 1.3; Range: 0.0-3.0; Units: %; Status: F Test: BASO %; Value: 0.3; Range: 0.0-1.0; Units: %; Status: F Test: LARGE UNSTAINED CELL %; Value: 2.1; Range: 0.0-4.0; Units: %; Status: F Test: NEUTROPHILS #; Value: 4.2; Range: 1.8-7.7; Units: K/mm3; Status: F Test: LYMPH #; Value: 2.7; Range: 1.5-4.5; Units: K/mm3; Status: F Test: MONO #; Value: 0.4; Range: 0.0-0.8; Units: K/mm3; Status: F Test: EOS #; Value: 0.1; Range: 0.0-0.50; Units: K/mm3; Status: F Test: BASO #; Value: 0.0; Range: 0.0-0.2; Units: K/mm3; Status: F Test: LARGE UNSTAINED CELL #; Value: 0.2; Range: 0.0-0.4; Units: K/mm3; Status: F Lab Order: Lipase; [facility] 05/20/16 17:20 Test: LIPASE; Value: 160; Range: 73-393; Units: U/L; Status: F Lab Order: Liver Profile; [facility] 05/20/16 17:20 Test: AST/SGOT; Value: 23; Range: 15-37; Units: U/L; Status: F Test: ALT/SGPT; Value: 57; Range: 12-78; Units: U/L; Status: F Test: ALKALINE PHOSPHATASE; Value: 78; Range: 45-117; Units: U/L; Status: F Test: BILIRUBIN,TOTAL; Value: 0.6; Range: 0.2-1.0; Units: MG/DL; Status: F Test: BILIRUBIN,DIRECT; Value: 0.1; Range: 0.0-0.2; Units: MG/DL; Status: F Test: TOTAL PROTEIN; Value: 7.7; Range: 6.4-8.2; Units: GM/DL; Status: F Test: ALBUMIN; Value: 3.9; Range: 3.2-5.2; Units: GM/DL; Status: F Test: ALBUMIN/GLOBULIN RATIO; Value: 1.03; Range: 1.00-1.93; Status: F Lab Order: CRP; [facility] 05/20/16 17:20 Test: C REACTIVE PROTEIN QUANTITATIV; Value: 1.44; Range: 0.00-0.30; Abnormal: Above high normal; Units: MG/DL; Status: F Lab Order: Sed Rate; SPEC'M 05/20/16 17:20 Test: ERYTHROCYTE SEDIMENTATION RATE; Value: 36; Range: 0-20; Abnormal: Above high normal; Units: mm/hr; Status: F Lab Order: HCG, SERUM QUANTITATIVE; SPEC'M 05/20/16 17:20 Test: HCG, SERUM QUANTITATIVE; Value: < 1.0; Units: MIU/ML; Status: F Test Note: ; GESTATIONAL AGE APPROXIMATE HCG RANGE (MIU/ML) 0.2-1 WEEK 5-50 1-2 WEEKS 50-500 2-3 WEEKS 100-5,000 3-4 WEEKS 500-10,000 4-5 WEEKS 1,000-50,000 5-6 WEEKS 10,000-100,000 6-8 WEEKS 15,000-200,000 2-3 MONTHS 10,000-100,000 NON FEMALES LESS THAN 3.0 Patient samples may contain human heterophilic antibodies that could react with immunoassays to give falsely elevated or depressed results. This assay has been designed to minimize interference from heterophilic antibodies. Elevated hCG levels have also been associated with trophoblastic disease and nontrophoblastic neoplasms. The possibility of having these diseases should be considered before a diagnosis of is made. This test is not intended for use as a surrogate marker for aiding in the diagnosis or monitoring the treatment of cancer patients. Siemens GrantAdler methodology. Radiology Order: CT ABD & PELVIS: IV and Oral Contrast Test: CT ABD & PELVIS: IV and Oral Contrast REASON FOR EXAMINATION: Diverticulitis/LLQ Yessenia; Clinical: Acute left lower quadrant pain.; ; Technique: Axial contrast enhanced images from the lung bases to the pubic; symphysis using oral and 100 ml Isovue 370 intravenous contrast material.; ; Comparison: 01/12/2016.; ; Findings:; Mural thickening and pericolonic stranding is appreciated involving the proximal; sigmoid colon with diffuse diverticulosis. Findings are most compatible with; acute diverticulitis a single significantly dilated air filled inflamed; diverticula is noted and small contained perforation cannot definitively be; excluded (images 98 - 88). Inflammatory changes are inseparable from the left; adnexa and may warrant followup to exclude secondary tubal ovarian inflammatory; changes. No bowel obstruction or michael perforation. The remainder of the small; large bowel is grossly unremarkable.; ; Liver, spleen, pancreas, gallbladder, bilateral adrenal glands and kidneys are; normal pelvis demonstrates normal bladder and age-appropriate uterus/adnexa no; pelvic fluid or ascites. No significant adenopathy. Vasculature appears normal.; Musculoskeletal structures are intact.; ; Impression:; Acute sigmoid diverticulitis as described above. Small focus of contained; perforation cannot be excluded as well as secondary inflammatory changes to the; left ovary. There is no associated bowel obstruction, michael perforation, or; drainable collection/abscess.; ; ; Signed by; Doug Emmanuel MD 05/21/2016 08:08 A; Outcome: 19:16 Discharge ordered by Provider. dt4 19:16 CT Study completed. dsf 19:27 Discharge Assessment: Patient awake, alert and oriented x 3. No cognitive and/or dsf functional deficits noted. Patient verbalized understanding of disposition instructions. patient administered narcotics - no. The following High Risk Discharge criteria are identified: None. Discharged to home ambulatory, with family. Condition: stable. Discharge instructions given to patient, Instructed on discharge instructions, follow up and referral plans. medication usage, no driving heavy equipment, Demonstrated understanding of instructions, medications, Pt was receptive of discharge instructions/ teaching. Prescriptions given X 3, Work note provided to patient. Property sent home with patient. 19:27 Patient left the ED. dsf Signatures: Dispatcher [employer] EDMS Carlyn Dodson RN Rose Last RN RN dls Fuller, Desiree, RN RN Gloria Hood RN RN pml Hafner, Jane, RN RN cjh Wallace, Sarah sew Raymond, Gainslee gr2 Mei Peterson PA-C PA-C dt4 Shawanda Franklin Kathie klr Chart Complete MTDD
== END 2016-05-20 19:27 | disposition home or self-care (01) ==
LOC: M ED 15:51
DX: K57.32 Diverticulitis of large intestine without perforation or abscess without bleeding (principal); K57.30 Diverticulosis of large intestine without perforation or abscess without bleeding; K21.9 Gastro-esophageal reflux disease without esophagitis; M32.9 Systemic lupus erythematosus, unspecified; K44.9 Diaphragmatic hernia without obstruction or gangrene; Z79.82 Long term (current) use of aspirin; Z79.899 Other long term (current) drug therapy
CPT/HCPCS: 36415; 74177; 80048; 80076; 82150; 83690; 84702; 85025; 85652; 86140; 96360; 99284; Q9963; Q9967

== ENCOUNTER 2016-09-10 17:31 | Emergency (ER) | payer BC ==
[~2016-09-10] VITALS: Ht 154.9 cm; Wt 83.6 kg
[2016-09-10] MEDS ORDERED: GLUT500C PO (17:40)
[2016-09-10] MEDS ORDERED: DOCQ100C PO (17:40)
[2016-09-10] MEDS ORDERED: ONDANSETRON 4MG/2ML VIAL (J2405) IV ONE (19:00)
[2016-09-10] MEDS ORDERED: KETOROLAC 30 MG/ML VIAL (J1885) IV ONE (19:00)
[2016-09-10] MEDS ORDERED: GASTROGRAFIN SOLUTION 30ML (Q9963) As Ordered ONE (19:29)
[2016-09-10] MEDS ORDERED: GASTROGRAFIN SOLUTION 30ML (Q9963) PO ONE ×2 (19:45)
[2016-09-10 19:50] LABS: BASO % 0.3 % (0.0-1.0); EOS # 0.1 K/mm3 (0.0-0.50); EOS % 1.3 % (0.0-3.0); LARGE UNSTAINED CELL # 0.1 K/mm3 (0.0-0.4); LARGE UNSTAINED CELL % 1.9 % (0.0-4.0); LYMPH # 2.5 K/mm3 (1.5-4.5); LYMPH % 30.9 % (24.0-44.0); MEAN CORPUSCULAR HEMOGLOBIN 31.5 pg (27.0-33.0); MONO # 0.4 K/mm3 (0.0-0.8); MONO % 5.3 % (0.0-5.0); NEUTROPHILS # 4.6 K/mm3 (1.8-7.7); NEUTROPHILS % 60.2 % (36.0-66.0); PLATELET COUNT, AUTOMATED 207 k/mm3 (150-450); RED CELL DISTRIBUTION WIDTH 12.8 % (11.5-14.5); WHITE BLOOD COUNT 7.6 K/mm3 (4.0-10.0)
[2016-09-10 19:56] LABS: ALBUMIN/GLOBULIN RATIO 1.08 (1.00-1.93); ALKALINE PHOSPHATASE 67 U/L (45-117); ALT/SGPT 57 U/L (12-78); AMYLASE 64 U/L (25-115); ANION GAP 8 MEQ/L (8-16); AST/SGOT 69 U/L (15-37); BILIRUBIN,DIRECT 0.1 MG/DL (0.0-0.2); BILIRUBIN,TOTAL 0.6 MG/DL (0.2-1.0); BLOOD UREA NITROGEN 20 MG/DL (7-18); CALCIUM LEVEL 9.1 MG/DL (8.5-10.1); CARBON DIOXIDE LEVEL 26 MEQ/L (21-32); CHLORIDE LEVEL 105 MEQ/L (98-107); CREATININE FOR GFR 0.88 MG/DL (0.55-1.02); GLOMERULAR FILTRATION RATE > 60.0 (>58); GLUCOSE, FASTING 73 MG/DL (70-105); POTASSIUM SERUM 3.7 MEQ/L (3.5-5.1); SODIUM LEVEL 139 MEQ/L (136-145); TOTAL PROTEIN 7.7 GM/DL (6.4-8.2)
[2016-09-10] MEDS ORDERED: ISOVUE-370 76% 100ML VIAL (Q9967) As Ordered ONE (20:49)
--- NOTE | 2016-09-10 21:30 | REPUSA ---
CT of the abdomen and pelvis with contrast Clinical statement: Pain. Technique: Multiple axial CT images were obtained from the base of the lungs through the floor of the pelvis utilizing 5 mm axial slices after administration of oral and nonionic intravenous contrast. C oronal and sagittal reconstructions were also obtained. Comparison: None. Findings: Chest: The visualized lung bases are clear. Abdomen: The liver, spleen, pancreas, kidneys, gallbladder, and adrenal glands are unremarkable. The aorta is within normal limits. There is no evidence of abdominal lymphadenopathy or ascites. Pelvis: There is diffuse sigmoid diverticulosis. There is focal bowel wall thickening and mesenteric inflammation, consistent with acute sigmoid diverticulitis. There is no evidence of abscess or perfor ation. There is no bowel obstruction. The appendix is normal. The urinary bladder is within normal li mits. The other pelvic structures appear grossly intact. There is no evidence of pelvic lymphadenopat hy or ascites. Bones: There are no suspicious osseous abnormalities seen. Impression: Acute sigmoid diverticulitis. No evidence of abscess or perforation.
[2016-09-10] MEDS ORDERED: AUGMENTIN 875 MG TAB PO ONE (22:00)
[2016-09-10] MEDS ORDERED: ZOFR4TAB3 PO (22:00)
[2016-09-10] MEDS ORDERED: DIFL150T PO (22:00)
[2016-09-10] MEDS ORDERED: AUGM875T27 PO (22:00)
[2016-09-10 22:12] VITALS: BP 107/66
== END 2016-09-10 22:29 | disposition home or self-care (01) ==
LOC: M ED 19:15
DX: K57.30 Diverticulosis of large intestine without perforation or abscess without bleeding (principal); Z79.82 Long term (current) use of aspirin; Z79.899 Other long term (current) drug therapy; Z87.891 Personal history of nicotine dependence
CPT/HCPCS: 36415; 74177; 80048; 80076; 82150; 83690; 85025; 86140; 96374; 96375; 99284; J1885; J2405; Q9963; Q9967

== ENCOUNTER → 2017-01-16 | Outpatient (CLI) | payer BC ==
[~2017-01-16] MED LIST changes: +AUGM875T28 PO; +DIFL150T PO; +DOCQ100C PO; +GLUT500C PO; +ZOFR4TAB3 PO
--- NOTE | 2017-01-17 03:07 | REP ---
Clinical: Constipation. Technique: Two supine views of the abdomen and pelvis. Findings: Bowel gas pattern is nonspecific. No evidence for obstruction. No abnormal calcifications. No organomegaly. Skeletal structures are intact. Impression: Nonspecific abdominal radiographs. Signed by Doug Emmanuel MD 01/17/2017 02:59 A
== END ==
LOC: M RAD 11:51
PROVIDERS: ATTEND Internal Medicine Gastroenterology
DX: K59.00 Constipation, unspecified (principal)

== ENCOUNTER 2017-03-27 13:34 | Emergency (ER) | payer BC ==
[2017-03-27] MEDS: NS 1,000 ML IV (16:15)
[2017-03-27 16:29] LABS: BASO % 0.4 % (0.0-1.0); EOS # 0.1 10^3/uL (0.0-0.50); EOS % 1.7 % (0.0-3.0); IMMATURE GRANULOCYTE % 0.2 % (0-0); LYMPH # 2.1 10^3/uL (1.5-4.5); LYMPH % 39.6 % (24.0-44.0); MEAN CORPUSCULAR HEMOGLOBIN 29.6 pg (27.0-33.0); MEAN CORPUSCULAR HGB CONC 33.9 g/dl (32.0-36.5); MEAN CORPUSCULAR VOLUME 87.1 fl (80.0-96.0); MONO # 0.4 10^3/uL (0.0-0.8); MONO % 8.3 % (0.0-5.0); NEUTROPHILS # 2.6 10^3/uL (1.8-7.7); NEUTROPHILS % 49.8 % (36.0-66.0); PLATELET COUNT, AUTOMATED 230 10^3/uL (150-450); RED CELL DISTRIBUTION WIDTH 12.7 % (11.5-14.5); WHITE BLOOD COUNT 5.2 10^3/uL (4.0-10.0)
[2017-03-27 17:05] LABS: ALKALINE PHOSPHATASE 76 U/L (45-117); ALT/SGPT 52 U/L (12-78); ANION GAP 7 MEQ/L (8-16); AST/SGOT 29 U/L (7-37); BILIRUBIN,TOTAL 0.4 MG/DL (0.2-1.0); BLOOD UREA NITROGEN 17 MG/DL (7-18); CALCIUM LEVEL 8.7 MG/DL (8.5-10.1); CARBON DIOXIDE LEVEL 26 MEQ/L (21-32); CHLORIDE LEVEL 109 MEQ/L (98-107); CREATININE FOR GFR 0.81 MG/DL (0.55-1.02); GLOMERULAR FILTRATION RATE > 60.0 (>58); GLUCOSE, FASTING 85 MG/DL (70-105); POTASSIUM SERUM 3.8 MEQ/L (3.5-5.1); SODIUM LEVEL 142 MEQ/L (136-145)
[2017-03-27 18:02] LABS: KETONE, URINE AUTO RFX NEGATIVE (NEGATIVE); LEUKOCYTE ESTERASE UR AUTO RFX NEGATIVE (NEGATIVE); MUCUS, URINE RFX SMALL (NEGATIVE); NITRITE, URINE AUTO RFX NEGATIVE (NEGATIVE); RBC, URINE AUTO RFX 2 /HPF (0-3); SPECIFIC GRAVITY UR AUTO RFX 1.015 (1.002-1.035); SQUAM EPITHELIAL CELL UR AURFX 4 /HPF (0-6); WBC, URINE AUTO RFX 1 /HPF (0-3)
[2017-03-27] MEDS ORDERED: ISOVUE-370 76% 100ML VIAL (Q9967) As Ordered (18:12)
== END 2017-03-27 20:49 | disposition home or self-care (01) ==
LOC: M ED 13:34
DX: K59.04 Chronic idiopathic constipation (principal); R10.9 Unspecified abdominal pain; K57.90 Diverticulosis of intestine, part unspecified, without perforation or abscess without bleeding; I10 Essential (primary) hypertension; F41.9 Anxiety disorder, unspecified; F32.9 Major depressive disorder, single episode, unspecified; A69.20 Lyme disease, unspecified; Z79.899 Other long term (current) drug therapy; Z79.82 Long term (current) use of aspirin
CPT/HCPCS: Q9967

== ENCOUNTER → 2017-08-27 | Outpatient (CLI) | payer BC ==
[~2017-08-27] MED LIST changes: -ASPI81TA85; -AUGM875T28 PO; -D 50CAP PO; -DIFL150T PO; -DOCQ100C PO; -GLUT500C PO; +ISOVUE-370 76% 100ML VIAL (Q9967) As Ordered; -OMEP40CA2 PO; -ZOFR4TAB3 PO; -ZONI100C2 PO
== END ==
LOC: M RAD 08:50
DX: R10.84 Generalized abdominal pain (principal); R19.4 Change in bowel habit; K76.0 Fatty (change of) liver, not elsewhere classified; K57.30 Diverticulosis of large intestine without perforation or abscess without bleeding; K42.9 Umbilical hernia without obstruction or gangrene
CPT/HCPCS: Q9967

== ENCOUNTER → 2017-09-09 | Outpatient (REF) | payer BC ==
[2017-09-09 18:52] LABS: RHEUMATOID FACTOR QUANT < 10.0 IU/ML (<15.0)
[2017-09-09 19:21] LABS: ERYTHROCYTE SEDIMENTATION RATE 36 mm/hr (0-20)
[2017-09-11 12:43] LABS: DRVV SCREEN 48.6 SEC
[2017-09-11 12:51] LABS: PTT LUPUS TYPE ANTICOAG SCREEN 1.2 (0-1.2)
[2017-09-11 12:57] LABS: DRVV CONFIRM 36.8 SEC
[2017-09-13 00:07] LABS: ANTINUCLEAR ANTIBODIES DIRECT Negative (Negative); HEXAGONAL PHASE PHOSPHOLIPID 10 sec (0-11); Lyme Disease IgG Ab 18 kDa Ban Absent (.); Lyme Disease IgG Ab 23 kDa Ban Absent (.); Lyme Disease IgG Ab 28 kDa Ban Absent (.); Lyme Disease IgG Ab 30 kDa Ban Absent (.); Lyme Disease IgG Ab 39 kDa Ban Absent (.); Lyme Disease IgG Ab 41 kDa Ban Absent (.); Lyme Disease IgG Ab 45 kDa Ban Absent (.); Lyme Disease IgG Ab 58 kDa Ban Absent (.); Lyme Disease IgG Ab 66 kDa Ban Absent (.); Lyme Disease IgG Ab 93 kDa Ban Absent (.); Lyme Disease IgG West Blot Int Negative (.); Lyme Disease IgG/IgM Antibodie <0.91 ISR (0.00-0.90); Lyme Disease IgM Ab 23 kDa Ban Present (.); Lyme Disease IgM Ab 39 kDa Ban Absent (.); Lyme Disease IgM Ab 41 kDa Ban Absent (.); Lyme Disease IgM Ab Quantitati 1.33 index (0.00-0.79); Lyme Disease IgM West Blot Int Negative (.)
== END ==
LOC: M LABNEURO 13:24
DX: M25.50 Pain in unspecified joint (principal)
CPT/HCPCS: 85730

== ENCOUNTER → 2017-09-24 | Outpatient (REF) | payer BC ==
[2017-09-24 17:31] LABS: BASO % 0.2 % (0.0-1.0); EOS # 0.1 10^3/uL (0.0-0.50); EOS % 1.2 % (0.0-3.0); HEMATOCRIT 37.7 % (36.0-47.0); HEMOGLOBIN 12.5 g/dl (12.0-15.5); IMMATURE GRANULOCYTE % 0.4 % (0-3.0); LYMPH # 2.3 10^3/uL (1.5-4.5); LYMPH % 45.1 % (24.0-44.0); MEAN CORPUSCULAR HEMOGLOBIN 29.3 pg (27.0-33.0); MEAN CORPUSCULAR HGB CONC 33.2 g/dl (32.0-36.5); MEAN CORPUSCULAR VOLUME 88.5 fl (80.0-96.0); MONO # 0.4 10^3/uL (0.0-0.8); MONO % 8.4 % (0.0-5.0); NEUTROPHILS # 2.3 10^3/uL (1.8-7.7); NEUTROPHILS % 44.7 % (36.0-66.0); PLATELET COUNT, AUTOMATED 224 10^3/uL (150-450); RED BLOOD COUNT 4.26 10^6/uL (4.00-5.40); RED CELL DISTRIBUTION WIDTH 12.5 % (11.5-14.5); WHITE BLOOD COUNT 5.1 10^3/uL (4.0-10.0)
[2017-09-24 17:39] LABS: C REACTIVE PROTEIN QUANTITATIV < 0.30 MG/DL (0.00-0.30)
[2017-09-24 17:39] LABS: THYROXINE (T4) 10.3 UG/DL (4.5-12.0)
[2017-09-24 18:50] LABS: ERYTHROCYTE SEDIMENTATION RATE 37 mm/hr (0-20)
[2017-09-25 09:19] LABS: THYROGLOBULIN ANTIBODY 29.2 U/ML (<60.0); THYROID PEROXIDASE ANTIBODY < 28.0 U/ML (<60.0)
[2017-09-27 00:07] LABS: ANA (HEP2) Negative (.)
== END ==
LOC: M SFHCPLAZ 12:14
DX: R59.1 Generalized enlarged lymph nodes (principal)
CPT/HCPCS: 84436

== ENCOUNTER → 2017-10-08 | Outpatient (CLI) | payer BC ==
[2017-10-08 15:19] LABS: BASO % 0.2 % (0.0-1.0); EOS # 0.1 10^3/uL (0.0-0.50); EOS % 1.6 % (0.0-3.0); HEMATOCRIT 38.1 % (36.0-47.0); HEMOGLOBIN 12.6 g/dl (12.0-15.5); IMMATURE GRANULOCYTE % 0.4 % (0-3.0); MEAN CORPUSCULAR HEMOGLOBIN 29.3 pg (27.0-33.0); MEAN CORPUSCULAR HGB CONC 33.1 g/dl (32.0-36.5); MEAN CORPUSCULAR VOLUME 88.6 fl (80.0-96.0); MONO # 0.4 10^3/uL (0.0-0.8); MONO % 8.4 % (0.0-5.0); NEUTROPHILS # 2.4 10^3/uL (1.8-7.7); NEUTROPHILS % 48.4 % (36.0-66.0); PLATELET COUNT, AUTOMATED 222 10^3/uL (150-450); RED CELL DISTRIBUTION WIDTH 12.8 % (11.5-14.5); WHITE BLOOD COUNT 4.9 10^3/uL (4.0-10.0)
[2017-10-08 15:37] LABS: LDH LACTATE DEHYDROGENASE 192 U/L (84-246)
[2017-10-08 15:37] LABS: C REACTIVE PROTEIN QUANTITATIV < 0.30 MG/DL (0.00-0.30)
[2017-10-08 15:38] LABS: ERYTHROCYTE SEDIMENTATION RATE 35 mm/hr (0-20)
[2017-10-17 00:21] LABS: HLA-B27 Negative (.); Lyme Disease IgG Ab 18 kDa Ban Absent (.); Lyme Disease IgG Ab 23 kDa Ban Absent (.); Lyme Disease IgG Ab 28 kDa Ban Absent (.); Lyme Disease IgG Ab 30 kDa Ban Absent (.); Lyme Disease IgG Ab 39 kDa Ban Absent (.); Lyme Disease IgG Ab 41 kDa Ban Absent (.); Lyme Disease IgG Ab 45 kDa Ban Absent (.); Lyme Disease IgG Ab 58 kDa Ban Absent (.); Lyme Disease IgG Ab 66 kDa Ban Absent (.); Lyme Disease IgG Ab 93 kDa Ban Absent (.); Lyme Disease IgG West Blot Int Negative (.); Lyme Disease IgG/IgM Antibodie <0.91 ISR (0.00-0.90); Lyme Disease IgM Ab 23 kDa Ban Present (.); Lyme Disease IgM Ab 39 kDa Ban Absent (.); Lyme Disease IgM Ab 41 kDa Ban Absent (.); Lyme Disease IgM Ab Quantitati 0.91 index (0.00-0.79); Lyme Disease IgM West Blot Int Negative (.); SSA SJOGRENS A <0.2 AI (0.0-0.9); SSB SJOGRENS B <0.2 AI (0.0-0.9)
== END ==
LOC: M LAB 14:19
DX: M25.50 Pain in unspecified joint (principal)
CPT/HCPCS: 83615

== ENCOUNTER → 2017-11-12 | Outpatient (REF) | payer BC | LOC: M SFHCLERA 09:43 | DX: D68.62 Lupus anticoagulant syndrome (principal); Z53.9 Procedure and treatment not carried out, unspecified reason | CPT/HCPCS: G0463 ==

== ENCOUNTER 2018-04-08 15:39 | Emergency (ER) | payer BC ==
[~2018-04-08] VITALS: Ht 154.9 cm; Wt 86.4 kg
[~2018-04-08 15:39] MED LIST changes: +ASPI81TA85; +AUGM875T28 PO; +D 50CAP PO; +DIFL150T PO; +DOCQ100C5 PO; +ESOM0.1C PO; +GLUT500C PO; -ISOVUE-370 76% 100ML VIAL (Q9967) As Ordered; +LINZ145C PO; +OMEP40CA2 PO; +PROP10TA56 PO; +SERT25TA88 PO; +VYVA20CA PO; +ZOFR4TAB14 PO; +ZONI100C2 PO
[2018-04-08] MEDS ORDERED: KETOROLAC 30 MG/ML VIAL (J1885) IV ONE (16:30)
[2018-04-08] MEDS ORDERED: NS 1,000 ML IV ONE (16:30)
[2018-04-08] MEDS ORDERED: ONDANSETRON 4MG/2ML VIAL (J2405) IV ONE (16:30)
[2018-04-08 16:51] LABS: BASO % 0.3 % (0.0-1.0); EOS # 0.1 10^3/uL (0.0-0.50); EOS % 1.6 % (0.0-3.0); HEMATOCRIT 36.2 % (36.0-47.0); HEMOGLOBIN 12.1 g/dl (12.0-15.5); LYMPH # 2.2 10^3/uL (1.5-4.5); LYMPH % 38.5 % (24.0-44.0); MEAN CORPUSCULAR HEMOGLOBIN 29.6 pg (27.0-33.0); MEAN CORPUSCULAR HGB CONC 33.4 g/dl (32.0-36.5); MEAN CORPUSCULAR VOLUME 88.5 fl (80.0-96.0); MONO # 0.6 10^3/uL (0.0-0.8); MONO % 10.4 % (0.0-5.0); NEUTROPHILS # 2.8 10^3/uL (1.8-7.7); NEUTROPHILS % 48.9 % (36.0-66.0); PLATELET COUNT, AUTOMATED 202 10^3/uL (150-450); RED BLOOD COUNT 4.09 10^6/uL (4.00-5.40); WHITE BLOOD COUNT 5.8 10^3/uL (4.0-10.0)
[2018-04-08 17:01] LABS: INR 0.94; PROTHROMBIN TIME 12.7 SECONDS (12.1-14.4)
[2018-04-08 17:02] LABS: PARTIAL THROMBOPLASTIN TIME 30.9 SECONDS (25.4-37.6)
[2018-04-08 17:11] LABS: ALBUMIN 3.6 GM/DL (3.2-5.2); ALT/SGPT 58 U/L (12-78); BILIRUBIN,DIRECT 0.1 MG/DL (0.0-0.2); BILIRUBIN,TOTAL 0.3 MG/DL (0.2-1.0); BLOOD UREA NITROGEN 17 MG/DL (7-18); CALCIUM LEVEL 8.6 MG/DL (8.5-10.1); CARBON DIOXIDE LEVEL 27 MEQ/L (21-32); CHLORIDE LEVEL 103 MEQ/L (98-107); CREATININE FOR GFR 0.73 MG/DL (0.55-1.30); GLOMERULAR FILTRATION RATE > 60.0 (>58); GLUCOSE, FASTING 75 MG/DL (70-100); LIPASE 174 U/L (73-393); POTASSIUM SERUM 3.9 MEQ/L (3.5-5.1); SODIUM LEVEL 137 MEQ/L (136-145); TOTAL PROTEIN 7.4 GM/DL (6.4-8.2)
[2018-04-08] MEDS ORDERED: ISOVUE-370 76% 100ML VIAL (Q9967) As Ordered ONE (17:34)
--- NOTE | 2018-04-08 18:28 | REP ---
CT ABDOMEN AND PELVIS WITH CONTRAST: HISTORY: Rectal bleeding. CONTRAST: Isovue-370 100 mL. COMPARISON: 08/27/2017. There is fatty infiltration of the liver. The gallbladder, pancreas, spleen, adrenal glands and kidneys are normal in appearance. There is no mass, adenopathy or free fluid. A small 1.8 cm fat containing ventral abdominal hernia is present. The visualized lungs are clear. Diverticula are present in the descending and sigmoid colon. The urinary bladder and uterus are normal in appearance. Degenerative change is present in the spine. IMPRESSION: 1. Fatty infiltration of the liver. 2. Small 1.8 cm fat containing ventral abdominal hernia. 3. Diverticulosis. Electronically Signed by Robert Garcia MD 04/08/2018 06:45 P
[2018-04-08] MEDS ORDERED: PROC1AER16 PR (18:41)
[2018-04-08 18:50] VITALS: BP 110/58
== END 2018-04-08 18:54 | disposition home or self-care (01) ==
LOC: M ED 15:39
DX: K43.9 Ventral hernia without obstruction or gangrene (principal); K64.9 Unspecified hemorrhoids; E04.9 Nontoxic goiter, unspecified; K25.9 Gastric ulcer, unspecified as acute or chronic, without hemorrhage or perforation; I10 Essential (primary) hypertension; E78.5 Hyperlipidemia, unspecified; K57.92 Diverticulitis of intestine, part unspecified, without perforation or abscess without bleeding; R51 Headache; K44.9 Diaphragmatic hernia without obstruction or gangrene; K42.9 Umbilical hernia without obstruction or gangrene; D68.9 Coagulation defect, unspecified; A69.20 Lyme disease, unspecified; F41.9 Anxiety disorder, unspecified; F32.9 Major depressive disorder, single episode, unspecified; Z79.899 Other long term (current) drug therapy; Z79.82 Long term (current) use of aspirin; Z88.1 Allergy status to other antibiotic agents
CPT/HCPCS: 74177; 80048; 80076; 81001; 83690; 85025; 85610; 85730; 96360; 99284; Q9967

== ENCOUNTER → 2019-12-14 | Outpatient (CLI) | payer BC ==
[~2019-12-14] MED LIST changes: -ASPI81TA85; +ASPI81TA86; -OMEP40CA2 PO; +OMEP40CA97 PO; +PROC1AER16 PR; +SERT25TA21 PO; -SERT25TA88 PO; +ZONI100C17 PO; -ZONI100C2 PO
[2019-12-14 12:38] LABS: BASO % 0.3 % (0.0-1.0); EOS # 0.1 10^3/uL (0.0-0.5); EOS % 1.4 % (0.0-3.0); HEMATOCRIT 39.6 % (36.0-47.0); HEMOGLOBIN 12.9 g/dl (12.0-15.5); LYMPH # 2.2 10^3/uL (1.5-5.0); LYMPH % 33.4 % (24.0-44.0); MEAN CORPUSCULAR HGB CONC 32.6 g/dl (32.0-36.5); MONO # 0.5 10^3/uL (0.0-0.8); MONO % 6.8 % (0.0-5.0); NEUTROPHILS # 3.8 10^3/uL (1.5-8.5); NEUTROPHILS % 57.6 % (36.0-66.0); PLATELET COUNT, AUTOMATED 253 10^3/uL (150-450); RED BLOOD COUNT 4.45 10^6/uL (4.00-5.40); WHITE BLOOD COUNT 6.6 10^3/uL (4.0-10.0)
[2019-12-14 13:03] LABS: ALBUMIN 3.8 GM/DL (3.2-5.2); ALT/SGPT 63 U/L (12-78); BILIRUBIN,TOTAL 0.5 MG/DL (0.2-1.0); BLOOD UREA NITROGEN 11 MG/DL (7-18); CALCIUM LEVEL 9.5 MG/DL (8.5-10.1); CARBON DIOXIDE LEVEL 30 MEQ/L (21-32); CHLORIDE LEVEL 104 MEQ/L (98-107); CREATININE FOR GFR 0.82 MG/DL (0.55-1.30); GLOMERULAR FILTRATION RATE > 60.0 (>51); GLUCOSE, FASTING 151 MG/DL (70-100); POTASSIUM SERUM 4.5 MEQ/L (3.5-5.1); RHEUMATOID FACTOR QUANT < 10.0 IU/ML (<15.0); SODIUM LEVEL 136 MEQ/L (136-145)
[2019-12-14 13:13] LABS: ERYTHROCYTE SEDIMENTATION RATE 41 mm/hr (0-30)
[2019-12-15 12:00] LABS: DRVV SCREEN 49.1 SEC
[2019-12-15 12:07] LABS: PTT LUPUS TYPE ANTICOAG SCREEN 1.2 (0-1.2)
[2019-12-15 12:26] LABS: DRVV CONFIRM 34.5 SEC; LUPUS CONFIRM RATIO 0.9
[2019-12-15 12:30] LABS: NORMALIZED RATIO 1.33 (0.00-1.20)
[2019-12-15 13:16] LABS: ALBUMIN % 54.8 % (55.8-66.1); ALPHA-1-GLOBULIN % 4.2 % (2.9-4.9); ALPHA-2-GLOBULINS % 10.8 % (7.1-11.8); BETA-1-GLOBULINS % 6.9 % (4.7-7.2); GAMMA GLOBULIN % 18.3 % (11.1-18.8)
[2019-12-15 13:17] LABS: ALBUMIN 4.38 GM/DL (3.29-5.55); ALPHA-1-GLOBULINS 0.34 GM/DL (0.17-0.41); ALPHA-2-GLOBULINS 0.86 GM/DL (0.42-0.99); BETA-1-GLOBULINS 0.55 GM/DL (0.28-0.60); GAMMA GLOBULINS 1.46 GM/DL (0.65-1.58)
[2019-12-15 16:11] LABS: ANTINUCLEAR ANTIBODIES DIRECT Negative (Negative)
[2019-12-29 09:48] LABS: HEXAGONAL PHASE PHOSPHOLIPID SEE SEPARATE REPORT
== END ==
LOC: M PLALAB 10:23
PROVIDERS: ATTEND Psychiatry & Neurology Neurology
DX: G62.9 Polyneuropathy, unspecified (principal); M54.2 Cervicalgia; M54.5 Low back pain; G89.29 Other chronic pain